=== PATIENT | male | born 1990 | race Caucasian/White ===

== ENCOUNTER 2016-04-28 10:43 | Inpatient (IN) ==
[2016-04-28] MEDS ORDERED: SODIUM CHLORIDE 0.9% 1,000 ML IV STA (13:43)
[2016-04-28] MEDS ORDERED: ONDANSETRON 4 MG/2 ML VIAL IV STA (13:43)
[2016-04-28] MEDS ORDERED: INSULIN REGULAR 100 UNIT/ML IV STA (13:44)
[2016-04-28] MEDS ORDERED: INSULIN REGULAR 100 UNIT/ML ONE (13:49)
[2016-04-28] MEDS ORDERED: ONDANSETRON 4 MG/2 ML VIAL ONE (13:49)
[2016-04-28 14:17] LABS: Basophils # 0.1 10*3/uL (0.0-0.2); Basophils % 0.6 % (0.0-0.8); Eosinophils % 0.1 % (0.00-10.9); Hematocrit 48.8 VOL% (42.0-52.0); Immature Granulocytes % 1.1 %; Immature Granulocytes Absolute 0.21 #; Lymphocytes % 5.3 % (21.2-54.2); Mean Corpuscular HGB Conc 30.7 GM/DL (32-36); Mean Corpuscular Hemoglobin 29 PG (27-34); Mean Corpuscular Volume 95.5 FL (87-102); Mean Platelet Volume 10.8 FL (9.6-12.0); Monocytes # 0.9 10*3/uL (0.11-0.8); Monocytes % 4.9 % (1.7-12.7); Neutrophils # 16.6 10*3/uL (1.4-7.4); Platelet Count 328 10*3/uL (130-400); Red Blood Count 5.11 10*6/uL (3.8-5.5); Red Cell Distribution Width 12.7 % (9.3-17.3); White Blood Count 18.9 10*3/uL (4.5-13.71)
[2016-04-28 14:32] LABS: Calcium 9.1 MG/DL (8.5-10.1); Osmolality,Calculated 311.2 MOS/KG (273-304)
[2016-04-28 14:34] LABS: Apearance,Urine CLEAR (Clear); Bilirubin,Urine Negative (Negative); Blood, Urine Negative (Negative); Glucose,Urine (UA) >=500 mg/dL (Negative); Ketones,Urine 80 mg/dL (Negative); Mucus,Urine Occasional /LPF (Occasional); Nitrite,Urine Negative (Negative); Protein,Urine Negative; Urine Color Colorless (Yellow); Urine Specific Gravity 1.024 (1.001-1.035); Urine Urobilinogen < 2.0 EU/DL (0.2-1.0); WBC,Urine <1 /HPF (0-6)
[2016-04-28 14:43] LABS: Barbiturates Screen,Urine Negative (Negative); Benzodiazepines Screen,Urine Negative (Negative); Cannabinoid Screen,Urine Negative (Negative); Opiate Screen,Urine Negative (Negative); Phencyclidine Screen,Urine Negative (Negative)
--- NOTE | 2016-04-28 15:19 | Emergency Department Note ---
IIsa Gwan, am scribing for, and in the presence of, Anthony Herrera MD 13:54. IJavier Robert M, MD, personally performed the services described in this documentation, ascribed by Ida Moss in my presence, and it is both accurate and complete 518 . Arrival - Arrival Chief Complaint: Nausea/Vomiting/Diarrhea Stated Complaint: DIABETIC SUGAR RUNNING OVER 600 AND HIGHER ED Nursing Triage Note: Pt c/o nausea and vomiting with high blood sugar since this am. States it has been in the 500's this am. Blood sugar greater than 500 in triage. Mode of Arrival: Ambulatory Limitations: No Limitations Source: Patient, Significant other, Old Records Reviewed, RN Notes Reviewed Time Seen by Provider: 04/28/16 13:43 - History of Present Illness HPI Narrative: Pt is a 25 y/o male, with a hx of HTN and NIDDM, who presents to the ED with a c/o N/V and high BS with an onset this morning. His associated sxs have been body aches. Family noted that pt's BS was taken at home and the machine would not given a reading due to it being at least in the 500s. Patient denies fever or having any insurance enabling him to get his insulin pump. Patient stated that he has had DKA before. No other problems/complaints reported in ED. Onset (ago): day(s) Consistency: constant Severity: moderate Allergies/Adverse Reactions: Allergies Allergy/AdvReac Type Severity Reaction Status Date / Time No Known Allergies Allergy Unverified 11/10/15 10:49 Home Medications: Home Medications Medication Instructions Recorded Confirmed Type Insulin Aspart [NovoLOG] 5 unit SUBCUT 1200 11/10/15 04/28/16 History Insulin Aspart [NovoLOG] 5 unit SUBCUT 1900 11/10/15 04/28/16 History Insulin Aspart [NovoLOG] 5 unit SUBCUT QAM 11/10/15 04/28/16 History Insulin Glargine,Hum.rec.anlog 15 unit SUBCUT DAILY 11/10/15 04/28/16 History [Lantus SoloStar] Lisinopril 5 mg PO DAILY 11/10/15 04/28/16 History Insulin Regular, Human [NovoLIN R] 5 - 10 unit SUBCUT TID PRN 04/28/16 04/28/16 History Review of System - Review of System 12 point system: reviewed and no additional remarkable complaints except as stated - Review of System Constitutional: Present: other (high blood sugar) Gastrointestinal: Present: as per HPI, nausea, vomiting Medical,Surgical,& Family Hx - Medical History Cardio: History of: Hypertension Endocrine: History of: Diabetes Mellitus (IDDM) - Social History Smoking Status: Current every day smoker Exam Vital Signs: Vital Signs Temperature 97.9 F 04/28/16 12:04 Pulse Rate 119 H 04/28/16 12:04 Respiratory Rate 20 04/28/16 12:04 Blood Pressure 128/68 04/28/16 12:04 O2 Sat by Pulse Oximetry 97 04/28/16 12:04 - General General appearance: alert, in no apparent distress - Head Head exam: Present: atraumatic, normocephalic - Eye Eye exam: Present: normal appearance, PERRL, EOMI - ENT ENT exam: Present: normal exam, normal oropharynx, mucous membranes moist, TM's normal bilaterally - Neck Neck exam: Present: full ROM, trachea midline. Absent: tenderness, meningismus , lymphadenopathy, thyromegaly - Chest Chest inspection: Present: symmetric chest wall rise. Absent: tenderness - Respiratory Respiratory exam: Present: other (Kussmaul Breathing) - Cardiovascular Cardiovascular exam: Present: regular rate, normal rhythm, normal heart sounds. Absent: murmur, rubs, gallop - Abdominal Exam Abdominal exam: Present: soft, normal bowel sounds. Absent: distention, tenderness, guarding, rebound - Extremities Exam Extremities exam: Present: full ROM. Absent: tenderness, pedal edema, calf tenderness - Back Exam Back exam: Present: full ROM. Absent: tenderness - Neurological Exam Neurological exam: Present: alert, oriented X3, CN II-XII intact. Absent: motor sensory deficit - Psychiatric Psychiatric exam: Present: anxious - Skin Skin exam: Present: warm, dry, intact, normal color Course - Consultations Consultation #1: The hospitalist service will admit the patient. Time: 15:18 Results - Labs CBC & BMP: 04/28/16 13:52 04/28/16 13:52 Lab Results: I have reviewed the patients labs Labs: Lab Results WBC 18.9 10*3/uL (4.5-13.71) H 04/28/16 13:52 RBC 5.11 10*6/uL (3.8-5.5) 04/28/16 13:52 Hgb 15.0 GM/DL (14.0-18.0) 04/28/16 13:52 Hct 48.8 VOL% (42.0-52.0) 04/28/16 13:52 MCV 95.5 FL (87-102) 04/28/16 13:52 MCH 29 PG (27-34) 04/28/16 13:52 MCHC 30.7 GM/DL (32-36) L 04/28/16 13:52 RDW 12.7 % (9.3-17.3) 04/28/16 13:52 Plt Count 328 10*3/uL (130-400) 04/28/16 13:52 MPV 10.8 FL (9.6-12.0) 04/28/16 13:52 Neut % (Auto) 88.0 % (38.7-73.9) H 04/28/16 13:52 Lymph % (Auto) 5.3 % (21.2-54.2) L 04/28/16 13:52 [place] % (Auto) 4.9 % (1.7-12.7) 04/28/16 13:52 Eos % (Auto) 0.1 % (0.00-10.9) 04/28/16 13:52 Baso % (Auto) 0.6 % (0.0-0.8) 04/28/16 13:52 Neut # (Auto) 16.6 10*3/uL (1.4-7.4) H 04/28/16 13:52 Lymph # (Auto) 1.0 10*3/uL (1.4-4.0) L 04/28/16 13:52 [place] # (Auto) 0.9 10*3/uL (0.11-0.8) H 04/28/16 13:52 Eos # (Auto) 0.0 10*3/uL (0.0-0.87) 04/28/16 13:52 Baso # (Auto) 0.1 10*3/uL (0.0-0.2) 04/28/16 13:52 Immature Gran % 1.1 % 04/28/16 13:52 Nucleated RBC % 0.0 /100WBC 04/28/16 13:52 Immature Gran # 0.21 # 04/28/16 13:52 Nucleated RBCs # 0.00 10*3/uL 04/28/16 13:52 Sodium 134 MMOL/L (136-145) L 04/28/16 13:52 Potassium 6.0 MMOL/L (3.5-5.1) H* 04/28/16 13:52 Chloride 94 MMOL/L (98-107) L 04/28/16 13:52 Carbon Dioxide 7 MMOL/L (21-32) L 04/28/16 13:52 Anion Gap 39.0 MMOL/L (5.0-15.0) H 04/28/16 13:52 BUN 22 MG/DL (7-18) H 04/28/16 13:52 Creatinine 1.60 MG/DL (0.70-1.30) H 04/28/16 13:52 GFR Calculation 70 ML/MIN 04/28/16 13:52 BUN/Creatinine Ratio 13.00 RATIO (6.00-20.00) 04/28/16 13:52 Glucose 837 MG/DL (74-106) H* 04/28/16 13:52 POC Glucose > 500 MG/DL (74-106) H* 04/28/16 14:05 Calculated Osmolality 311.2 MOS/KG (273-304) H 04/28/16 13:52 Calcium 9.1 MG/DL (8.5-10.1) 04/28/16 13:52 Amylase 18 U/L (25-115) L 04/28/16 13:52 Lipase 95.0 U/L (73-393) 04/28/16 13:52 Urine Color Colorless (Yellow) 04/28/16 13:52 Urine Appearance Clear (Clear) 04/28/16 13:52 Urine pH 5.0 (4.5-8.0) 04/28/16 13:52 Ur Specific [place] 1.024 (1.001-1.035) 04/28/16 13:52 Urine Protein Negative MG/DL 04/28/16 13:52 Urine Glucose (UA) >=500 mg/dL (Negative) 04/28/16 13:52 Urine Ketones 80 mg/dL (Negative) 04/28/16 13:52 Urine Blood Negative mg/dL (Negative) 04/28/16 13:52 Urine Nitrate Negative (Negative) 04/28/16 13:52 Urine Bilirubin Negative mg/dL (Negative) 04/28/16 13:52 Urine Urobilinogen < 2.0 EU/DL (0.2-1.0) H 04/28/16 13:52 Urine Leukocytes Negative Queenie/ul (Negative) 04/28/16 13:52 Urine WBC <1 /HPF (0-6) 04/28/16 13:52 Urine Mucus Occasional /LPF (Occasional) 04/28/16 13:52 Ur Culture Indicated? Not indicated 04/28/16 13:52 Urine Opiates Screen Negative (Negative) 04/28/16 13:52 Ur Barbiturates Screen Negative (Negative) 04/28/16 13:52 Ur Phencyclidine Scrn Negative (Negative) 04/28/16 13:52 U Amphetamine/Methamph Negative (Negative) 04/28/16 13:52 U Benzodiazepines Scrn Negative (Negative) 04/28/16 13:52 U Cocaine Metab Screen Negative (Negative) 04/28/16 13:52 U Cannabinoids Screen Negative (Negative) 04/28/16 13:52 Disposition Clinical Impression: DKA (diabetic ketoacidoses), Noncompliance, IDDM (insulin dependent diabetes mellitus) Case discussed with: patient, patient's family Disposition: Still a Patient Condition: Stable Time of Disposition: 15:18
[2016-04-28] MEDS ORDERED: DEXTROSE 50% 25 GM/50 ML VIAL IV PRN ×2 (15:26)
[2016-04-28] MEDS ORDERED: POTASSIUM CHLORIDE RIDER 10 MEQ in PREMIX 1 EACH IV PRN (15:26)
[2016-04-28] MEDS ORDERED: SODIUM CHLORIDE 0.9% 1,000 ML IV ONE (15:26)
[2016-04-28] MEDS ORDERED: MAGNESIUM SULF RIDER 4 GM in PREMIX 1 EACH IV PRN (15:26)
[2016-04-28] MEDS ORDERED: SODIUM BICARB INJ 100 MEQ in STERILE WATER INJ 400 ML IV PRN (15:26)
[2016-04-28] MEDS ORDERED: MAGNESIUM SULF RIDER 2 GM in PREMIX 1 EACH IV PRN (15:26)
[2016-04-28] MEDS ORDERED: SODIUM PHOSPHATE INJ 22.5 MMOL in SODIUM CHLORIDE 0.9% 250 ML IV PRN (15:26)
[2016-04-28] MEDS ORDERED: INSULIN REGULAR 100 UNIT/ML IV ONE (15:26)
[2016-04-28] MEDS ORDERED: INSULIN REGULAR DRIP 100 ML IV SCH ×2 (15:30)
--- NOTE | 2016-04-28 15:48 | XRay Report ---
Portable chest. Indication: Shortness of breath. No previous study. There is a mild increase in the interstitial markings in the right infrahilar region. No dense consolidation, pneumothorax, or pleural effusion. The heart is normal in size. The mediastinal contours are unremarkable. No bony abnormality. Impression: Suspected interstitial infiltrate in the right lung base. Short-term followup recommended. PROCEDURE INTERPRETED AT [facility] DEPARTMENT OF RADIOLOGY Final Report Signed by: Dr. Sheron Lundy
[2016-04-28] MEDS ORDERED: INSULIN REGULAR DRIP 100 ML IV ONE (16:02)
[2016-04-28 16:09] LABS: ABG Base Excess -16.1 MMOL/L (-2.5-2.5); ABG HCO3 8.4 MMOL/L (20-26); ABG Oxygen Saturation 98.1 % (95-100); ABG PH 7.261 (7.35-7.45); ABG PO2 120.2 MM HG (80-95); Allen Test Positive; Pt O2 Delivery Device Room Air
[2016-04-28 16:15] LABS: ABG PCO2 19.2 MM HG (35-48)
[2016-04-28 16:27] LABS: Magnesium 2.5 MG/DL (1.8-2.4); Phosphorous 6.4 MG/DL (2.5-4.9)
--- NOTE | 2016-04-28 16:34 | Hospitalist History & Physical ---
<Geraldine Sanchez N - Last Filed: 04/28/16 16:25> Assessment and Plan - Time spent with patient Time spent with patient: Greater than 30 minutes (due to assessment, plan and documentation) (1) DKA (diabetic ketoacidoses) Status: Acute Assessment and plan: admit to ICU DKA order set Consult to case management to try to help get his supplies MG and K replacement PRN meds further plan and addendum to follow per Dr. Clifton Current Visit: Yes (2) IDDM (insulin dependent diabetes mellitus) Status: Acute Current Visit: Yes (3) Noncompliance Status: Acute Current Visit: Yes History of Present Illness Chief complaint: DKA History of present illness: Mr. Díaz is a 25 year old male who presents to the Er today with vomiting and elevated glucose. Mr. Díaz has a known history of medical non- compliance. He states he is supposed to be on Lantus at night but has not been taking it for several weeks. He also has an insulin pump but has not had the supplies for it in a while. He has been using sliding scale Novolog at home, ran out last night after eating a double cheeseburger. He started vomiting this morning at work. He is awake and alert at present, breathing easy. He has been told not to eat or drink, but is asking for a coke and a meal. He has a PMH of DM and HTN. Denies PSH. Smokes a pack of cigarettes a day, drinks 2-3 times a week. Denies drug use. Pt denies chest pain, shortness of breath, abdominal pain , diarrhea, fever, chills, dysuria, edema. Home Medications Medication Instructions Recorded Confirmed Type Insulin Aspart [NovoLOG] 5 unit SUBCUT 1200 11/10/15 04/28/16 History Insulin Aspart [NovoLOG] 5 unit SUBCUT 1900 11/10/15 04/28/16 History Insulin Aspart [NovoLOG] 5 unit SUBCUT QAM 11/10/15 04/28/16 History Insulin Glargine,Hum.rec.anlog 15 unit SUBCUT DAILY 11/10/15 04/28/16 History [Lantus SoloStar] Lisinopril 5 mg PO DAILY 11/10/15 04/28/16 History Insulin Regular, Human [NovoLIN R] 5 - 10 unit SUBCUT TID PRN 04/28/16 04/28/16 History Allergies Allergy/AdvReac Type Severity Reaction Status Date / Time No Known Allergies Allergy Unverified 11/10/15 10:49 Medical,Surgical,& Family Hx - Medical History Cardio: History of: Hypertension Endocrine: History of: Diabetes Mellitus (IDDM) - Social History Smoking Status: Current every day smoker 12 point system: reviewed and no additional remarkable complaints except as stated Exam - Constitutional Vitals: Period Temp Pulse Resp BP Sys/Salgado Pulse Ox Last 24 Hr 97.9 F-98.0 F 114-119 20-22 128-128/68-77 97-97 General appearance: no acute distress - Head Head exam: Present: normal inspection, normocephalic - Eye Eye exam: Present: EOMI. Absent: scleral icterus Pupils: Present: HITESH, normal accommodation - ENT ENT exam: Present: normal exam, normal oropharynx - Neck Neck exam: Present: normal inspection. Absent: lymphadenopathy - Respiratory Respiratory exam: Present: clear to auscultation bilaterally. Absent: wheezes - Cardiovascular Cardiovascular exam: Present: regular rate and rhythm. Absent: tachycardia - GI/Abdominal GI/Abdominal exam: Present: normal bowel sounds, soft. Absent: tenderness - Extremities Exam Extremities exam: Present: normal inspection, full ROM. Absent: edema - Back Exam Back exam: Present: normal inspection. Absent: muscle spasm - Neurological Exam Neurological exam: Present: alert, oriented X3 - Psychiatric Psychiatric exam: Present: normal affect, normal mood - Skin Skin exam: Present: normal color, warm, dry Results - Labs CBC & BMP: 04/28/16 13:52 04/28/16 13:52 Lab Results: I have reviewed the past 24 hour labs <Anette Clifton - Last Filed: 04/28/16 18:01> History of Present Illness History of present illness: This sis an addendum to HPI: agree with A/P 25 yo WM with DMI presents to ER today after 1 episode of vomiting at work this am. Pt has DM I since young age. He is on insulin pump for 2 years. Apparently he run out of insulin supplies for pump for past month and was taking novolin SQ per [place]. He has a h/o medical noncompliance. Pt was admitted to [facility] 4 months ago with DKA. This morning he felt weak and suddenly vomited at work. He denies CP, SOB, fever, but admits having chills. He was around sick daughter. His BS this am was 250. Pt presented to ER and his BS was in 600s. Chest x ray - with right mid lobe opacity. His GAP around 39. pt was admitted to ICU on DKA protocol. will start on ceftriaxone 1 g IV q 24 to cover for gram neg. Exam - Constitutional Vitals: Period Temp Pulse Resp BP Sys/Salgado Pulse Ox Last 24 Hr 96-104 19-19 128-152/58-70 100-100 Results - Labs CBC & BMP: 04/28/16 13:52 04/28/16 13:52
[2016-04-28] MEDS: SODIUM CHLORIDE 0.9% 1,000 ML IV SCH ×2 (17:37→20:20)
[2016-04-28] MEDS: cefTRIAXone 1,000 MG in SODIUM CHLORIDE 0.9% 100 ML IV SCH (18:33)
[2016-04-28] MEDS: DEXTROSE 5% NACL 0.9% 1,000 ML IV SCH (19:15)
[2016-04-28] MEDS ORDERED: DEXTROSE 5% 1,000 ML IV SCH (19:30)
[2016-04-28 19:54] LABS: Calcium 8.2 MG/DL (8.5-10.1); Osmolality,Calculated 299.3 MOS/KG (273-304); Potassium 4.8 MMOL/L (3.5-5.1)
[2016-04-28] MEDS ORDERED: SODIUM CHLORIDE 0.9% 1,000 ML IV SCH (20:26)
[2016-04-28] MEDS: DEXTROSE 5% NACL 0.45% 1,000 ML IV SCH (21:30)
[2016-04-29 00:01] LABS: Calcium 7.7 MG/DL (8.5-10.1); Osmolality,Calculated 287.8 MOS/KG (273-304); Potassium 4.3 MMOL/L (3.5-5.1)
[2016-04-29] MEDS: DEXTROSE 5% NACL 0.9% 1,000 ML IV SCH (00:16)
[2016-04-29] MEDS: DEXTROSE 5% NACL 0.45% 1,000 ML IV SCH (04:55)
[2016-04-29 05:22] LABS: Basophils # 0.1 10*3/uL (0.0-0.2); Basophils % 0.5 % (0.0-0.8); Eosinophils # 0.1 10*3/uL (0.0-0.87); Hematocrit 40.1 VOL% (42.0-52.0); Immature Granulocytes % 0.4 %; Immature Granulocytes Absolute 0.04 #; Lymphocytes # 2.7 10*3/uL (1.4-4.0); Lymphocytes % 27.6 % (21.2-54.2); Mean Corpuscular HGB Conc 32.4 GM/DL (32-36); Mean Corpuscular Hemoglobin 29 PG (27-34); Mean Corpuscular Volume 88.1 FL (87-102); Mean Platelet Volume 10.3 FL (9.6-12.0); Monocytes # 0.9 10*3/uL (0.11-0.8); Monocytes % 9.3 % (1.7-12.7); Neutrophils % 61.2 % (38.7-73.9); Platelet Count 264 10*3/uL (130-400); Red Blood Count 4.55 10*6/uL (3.8-5.5); Red Cell Distribution Width 12.8 % (9.3-17.3); White Blood Count 9.8 10*3/uL (4.5-13.71)
[2016-04-29 05:50] LABS: Magnesium 2.2 MG/DL (1.8-2.4); Phosphorous 3.6 MG/DL (2.5-4.9)
[2016-04-29 05:51] LABS: Calcium 7.8 MG/DL (8.5-10.1); Osmolality,Calculated 289.8 MOS/KG (273-304); Potassium 4.1 MMOL/L (3.5-5.1)
[2016-04-29 07:47] LABS: Calcium 7.9 MG/DL (8.5-10.1); Osmolality,Calculated 288.6 MOS/KG (273-304); Potassium 4.1 MMOL/L (3.5-5.1)
[2016-04-29] MEDS ORDERED: SODIUM CHLORIDE 0.45% 1,000 ML IV SCH (08:26)
[2016-04-29] MEDS ORDERED: GLUCAGON 1 MG VIAL IM PRN (08:41)
[2016-04-29] MEDS ORDERED: DEXTROSE 50% 25 GM/50 ML VIAL IV PRN (08:41)
[2016-04-29] MEDS: NICOTINE 14 MG/24 HR PATCH TRANSDERM SCH (09:00)
[2016-04-29] MEDS ORDERED: INSULIN GLARGINE 100 UNIT/ML SUBCUT SCH (09:00)
--- NOTE | 2016-04-29 10:18 | Hospitalist Progress Note ---
Assessment and Plan (1) DKA (diabetic ketoacidoses) Status: Suspected Assessment and plan: advance his diet and give Lantus 20 units now and resume sliding scale insulin until seen by visual educator Current Visit: Yes (2) Noncompliance Status: Chronic Current Visit: Yes (3) IDDM (insulin dependent diabetes mellitus) Status: Chronic Current Visit: Yes Hospitalist: Subjective Interval history: Patient is a 25-year-old male with history of insulin-dependent diabetes mellitus as he does have an insulin pump. He presented with nausea vomiting abdominal pain was found to be in DKA. This was treated with IV fluids and insulin infusion. Patient states that he does not have the financial resources to resume his insulin medications and supplies. Exam - Constitutional Vitals: Period Temp Pulse Resp BP Sys/[place]algado Pulse Ox Last 24 Hr 97.5 F-98.9 F 82-111 10-24 99-154/29-86 94-100 General appearance: no acute distress - Head Head exam: Present: normocephalic, atraumatic - Eye Eye exam: Present: EOMI Pupils: Present: HITESH - ENT ENT exam: Present: normal exam - Neck Neck exam: Present: normal inspection - Respiratory Respiratory exam: Present: clear to auscultation bilaterally - Cardiovascular Cardiovascular exam: Present: regular rate and rhythm - GI/Abdominal GI/Abdominal exam: Present: normal bowel sounds, soft - Extremities Exam Extremities exam: Present: full ROM - Neurological Exam Neurological exam: Present: alert, oriented X3, CN II-XII intact - Psychiatric Psychiatric exam: Present: normal affect, normal mood - Skin Skin exam: Present: warm, intact Results - Labs CBC & BMP: 04/29/16 04:38 04/29/16 07:04
[2016-04-29] MEDS: INSULIN REGULAR 100 UNIT/ML SUBCUT SCH ×3 (11:39→20:43)
[2016-04-29 12:16] LABS: Calcium 7.9 MG/DL (8.5-10.1); Osmolality,Calculated 287.1 MOS/KG (273-304)
[2016-04-29] MEDS: cefTRIAXone 1,000 MG in SODIUM CHLORIDE 0.9% 100 ML IV SCH (17:49)
[2016-04-30 07:18] VITALS: BP 145/90
[2016-04-30] MEDS ORDERED: INSULIN NPH/REGULAR 70/30 100 UNIT/ML SUBCUT SCH ×2 (07:30→16:30)
[2016-04-30] MEDS: INSULIN REGULAR 100 UNIT/ML SUBCUT SCH (08:27)
[2016-04-30] MEDS: NICOTINE 14 MG/24 HR PATCH TRANSDERM SCH (08:30)
--- NOTE | 2016-04-30 10:34 | Discharge Summary ---
Hospital Course - Hospital Course Hospital Course: Patient is a 25-year-old male with a history of insulin dependent diabetes does have a insulin pump but is unable to purchase his supplies. He presented complaining of abdominal pain associated with nausea and vomiting and was found to be hyperglycemic with an acidosis was admitted to the intensive care unit for diabetic ketoacidosis. He was started on insulin views along with IV fluids. His anion gap is resolved and his insulin infusion was stopped. His diet was advanced. We did do a certified lactation educator consultation who recommended 70/30 20 units in the a.m. and 10 units at night. Overnight it appears that he became hypoglycemic but did respond with crackers and juice. Patient is not ready to be discharged home. We'll continue the 70/30 20 units in the a.m. but will decrease his evening dose to to 5 units. - Time spent with patient Time with patient DS: Greater than 30 minutes Diagnosis - Discharge Diagnosis (1) DKA (diabetic ketoacidoses) Status: Suspected (2) Noncompliance Status: Chronic (3) IDDM (insulin dependent diabetes mellitus) Status: Chronic Discharge Plan - Discharge Data Disposition: Disch To Home/Self Care Discharge Diet: diabetic diet Activity: resume usual activities as tolerated Hygiene: no restrictions Contact your physician if you experience:: Nausea/Vomiting - Discharge Medications New Hum Insulin NPH/Reg Insulin Hm [NovoLIN 70/30] 20 unit SUBCUT AC BREAKFAST # 10 ml Hum Insulin NPH/Reg Insulin Hm [NovoLIN 70/30] 5 unit SUBCUT AC SUPPER #10 ml Continue Lisinopril 5 mg PO DAILY Discontinued Insulin Aspart [NovoLOG] 5 unit SUBCUT 1900 Insulin Aspart [NovoLOG] 5 unit SUBCUT 1200 Insulin Aspart [NovoLOG] 5 unit SUBCUT QAM Insulin Glargine,Hum.rec.anlog [Lantus SoloStar] 15 unit SUBCUT DAILY Insulin Regular, Human [NovoLIN R] 5 - 10 unit SUBCUT TID PRN PRN Reason: SLIDING SCALE - Follow Up or Referral - Forms/Instructions Exam - Constitutional Vitals: Period Temp Pulse Resp BP Sys/[place] Pulse Ox Last 24 Hr 97.2 F-99.0 F 79-105 15-20 113-150/67-90 97-98 General appearance: no acute distress - Head Head exam: Present: normocephalic, atraumatic - Eye Eye exam: Present: EOMI Pupils: Present: HITESH - ENT ENT exam: Present: normal exam - Respiratory Respiratory exam: Present: clear to auscultation bilaterally - Cardiovascular Cardiovascular exam: Present: regular rate and rhythm - GI/Abdominal GI/Abdominal exam: Present: normal bowel sounds, soft - Extremities Exam Extremities exam: Present: full ROM - Neurological Exam Neurological exam: Present: alert, oriented X3, CN II-XII intact - Skin Skin exam: Present: warm, dry, intact Discharge Results Labs on day of discharge: Labs from last 24 hours 04/30/16 04/29/16 04/29/16 07:08 20:53 19:52 Sodium Potassium Chloride Carbon Dioxide Anion Gap BUN Creatinine GFR Calculation BUN/Creatinine Ratio Glucose POC Glucose 292 H 86 33 L* Calculated Osmolality Calcium 04/29/16 04/29/16 04/29/16 16:09 15:44 15:19 Sodium Potassium Chloride Carbon Dioxide Anion Gap BUN Creatinine GFR Calculation BUN/Creatinine Ratio Glucose POC Glucose 92 68 L 39 L* Calculated Osmolality Calcium 04/29/16 04/29/16 04/29/16 14:57 11:44 10:33 Sodium 142 Potassium 4.0 Chloride 107 Carbon Dioxide 21 Anion Gap 18.0 H BUN 10 Creatinine 1.10 GFR Calculation 109 BUN/Creatinine Ratio 9.00 Glucose 200 H POC Glucose 36 L* 235 H Calculated Osmolality 287.1 Calcium 7.9 L 04/29/16 04/29/16 09:35 08:35 Sodium Potassium Chloride Carbon Dioxide Anion Gap BUN Creatinine GFR Calculation BUN/Creatinine Ratio Glucose POC Glucose 160 H 138 H Calculated Osmolality Calcium Preliminary micro results at discharge 04/28/16 16:54 Blood Culture - Preliminary Blood No growth at 1 day 04/28/16 16:22 Blood Culture - Preliminary Blood No growth at 1 day DS: Provider Date of admission: 04/28/16 15:26 Primary care physician: . No PCP Attending physician on admission: Anette Clifton MD Consults: 04/28/16 17:21 Consult to Pharmacy [CONS] Routine Reason for Pharmacy Consult: Adjust Meds Renal Funct 04/28/16 18:08 Consult to [facility], Educator [CONS] Routine Reason for Welder Fitter Arc: Diabetes Education 04/29/16 10:19 Consult to Case Mgmt/Social Srvs [CONS] Routine Reason for Case Mgmt/Social Srvs: Discharge Planning Other Consult Comment: will need assistance to purchase insulin supplies Consult to [facility], Educator [CONS] Routine Reason for Welder Fitter Arc: Restart Insulin Pump Discharging clinician: Sravani Solano MD Expected date of discharge: 04/30/16
== END 2016-04-30 11:16 | disposition home or self-care (01) | DRG 639 ==
LOC: N.ED 10:43 → N.EDINP 15:26 → N.CC 17:06 → N.2E 04-29 15:04
PROVIDERS: ADMIT Internal Medicine; ATTEND Internal Medicine

== ENCOUNTER 2016-08-29 13:58 | Inpatient (IN) ==
[2016-08-29] MEDS ORDERED: SODIUM CHLORIDE 0.9% 1,000 ML IV STA (14:47)
[2016-08-29] MEDS ORDERED: ONDANSETRON 4 MG/2 ML VIAL IV STA (14:47)
[2016-08-29] MEDS ORDERED: ONDANSETRON 4 MG/2 ML VIAL ONE (15:05)
[2016-08-29 15:15] LABS: Basophils # 0.1 10*3/uL (0.0-0.2); Basophils % 0.7 % (0.0-0.8); Eosinophils # 0.1 10*3/uL (0.0-0.87); Eosinophils % 0.5 % (0.00-10.9); Hematocrit 47.1 VOL% (42.0-52.0); Hemoglobin 15.8 GM/DL (14.0-18.0); Immature Granulocytes % 0.4 %; Immature Granulocytes Absolute 0.04 #; Lymphocytes # 1.9 10*3/uL (1.4-4.0); Lymphocytes % 19.7 % (21.2-54.2); Mean Corpuscular HGB Conc 33.5 GM/DL (32-36); Mean Corpuscular Hemoglobin 30 PG (27-34); Mean Corpuscular Volume 90.1 FL (87-102); Mean Platelet Volume 9.3 FL (9.6-12.0); Monocytes # 0.5 10*3/uL (0.11-0.8); Monocytes % 5.3 % (1.7-12.7); Neutrophils % 73.4 % (38.7-73.9); Platelet Count 320 T/CUMM (130-400); Red Blood Count 5.23 MC/CUMM (3.8-5.5); Red Cell Distribution Width 13.6 % (9.3-17.3); White Blood Count 9.5 T/CUMM (4-12)
[2016-08-29 15:23] LABS: Apearance,Urine CLEAR (Clear); Bilirubin,Urine Negative (Negative); Blood, Urine Negative (Negative); Glucose,Urine (UA) >=500 mg/dL (Negative); Ketones,Urine 80 mg/dL (Negative); Nitrite,Urine Negative (Negative); Protein,Urine 30 MG/DL; RBC,Urine 5 /HPF (0-4); Squamous Epithelial Cell,Urine Occasional /HPF (0-10); Urine Color Yellow (Yellow); Urine Specific Gravity 1.031 (1.001-1.035); Urine Urobilinogen < 2.0 EU/DL (0.2-1.0); WBC,Urine 14 /HPF (0-6)
[2016-08-29 15:35] LABS: Calcium 8.9 MG/DL (8.5-10.1); Osmolality,Calculated 278.8 MOS/KG (273-304); Potassium 4.2 MMOL/L (3.5-5.1)
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
[2016-08-29] MEDS ORDERED: SODIUM ACETATE IV PRN (16:48)
[2016-08-29] MEDS ORDERED: MAGNESIUM SULF RIDER 4 GM in PREMIX 1 EACH IV PRN (16:48)
[2016-08-29] MEDS ORDERED: MAGNESIUM SULF RIDER 2 GM in PREMIX 1 EACH IV PRN (16:48)
[2016-08-29] MEDS ORDERED: STERILE WATER IV PRN (16:48)
[2016-08-29] MEDS ORDERED: ALBUTEROL 2.5 MG/3 ML NEB RESP TX PRN (16:48)
[2016-08-29] MEDS ORDERED: ONDANSETRON 4 MG/2 ML VIAL IV PRN (16:48)
[2016-08-29] MEDS ORDERED: LABETALOL 20 MG/4 ML SYRINGE IV PRN (16:48)
[2016-08-29] MEDS ORDERED: INSULIN REGULAR DRIP 100 ML IV SCH (16:48)
[2016-08-29] MEDS ORDERED: SODIUM PHOSPHATE INJ 20.4 MMOL in SODIUM CHLORIDE 0.9% 250 ML IV PRN (16:48)
[2016-08-29] MEDS ORDERED: DEXTROSE 50% 25 GM/50 ML VIAL IV PRN ×2 (16:48)
[2016-08-29] MEDS: DEXTROSE 5% NACL 0.45% 1,000 ML IV SCH (17:02)
[2016-08-29] MEDS: cefTRIAXone 1,000 MG in SODIUM CHLORIDE 0.9% 100 ML IV SCH (17:05)
--- NOTE | 2016-08-29 17:06 | XRay Report ---
XR chest 1V Indication: Shortness of breath Comparison: None. Technique: Portable AP chest was performed. Findings: Heart size, mediastinal contour, and hilar structures demonstrate no significant abnormalities. The lung parenchyma is clear. Bones and soft tissues demonstrate no significant abnormalities. Impression: 1. No evidence of acute pathology. 08/29/2016 5:03 PM PROCEDURE INTERPRETED AT [facility] DEPARTMENT OF RADIOLOGY Final Report Signed by: Dr. Alphonso Herrera
[2016-08-29] MEDS: ENOXAPARIN 40 MG/0.4 ML SYRINGE SUBCUT SCH (17:08)
[2016-08-29] MEDS: PANTOPRAZOLE 40 MG VIAL IV SCH (17:09)
[2016-08-29 17:11] LABS: Magnesium 2.1 MG/DL (1.8-2.4); Phosphorous 2.9 MG/DL (2.5-4.9)
[2016-08-29 23:47] LABS: Calcium 7.7 MG/DL (8.5-10.1); Osmolality,Calculated 279.3 MOS/KG (273-304); Potassium 3.6 MMOL/L (3.5-5.1)
[2016-08-30] MEDS ORDERED: GLUCAGON 1 MG VIAL IM PRN (00:25)
[2016-08-30] MEDS: DEXTROSE 5% NACL 0.45% 1,000 ML IV SCH ×3 (00:41→16:13)
[2016-08-30] MEDS: POTASSIUM CHLORIDE RIDER 10 MEQ in PREMIX 1 EACH IV PRN ×2 (00:42→01:47)
[2016-08-30] MEDS: INSULIN REGULAR 100 UNIT/ML SUBCUT SCH ×6 (05:39→23:14)
[2016-08-30 05:48] LABS: Basophils # 0.1 10*3/uL (0.0-0.2); Basophils % 0.9 % (0.0-0.8); Eosinophils # 0.2 10*3/uL (0.0-0.87); Eosinophils % 2.7 % (0.00-10.9); Hematocrit 39.3 VOL% (42.0-52.0); Hemoglobin 12.9 GM/DL (14.0-18.0); Immature Granulocytes % 0.4 %; Immature Granulocytes Absolute 0.03 #; Lymphocytes # 2.6 10*3/uL (1.4-4.0); Lymphocytes % 34.4 % (21.2-54.2); Mean Corpuscular HGB Conc 32.8 GM/DL (32-36); Mean Corpuscular Hemoglobin 30 PG (27-34); Mean Corpuscular Volume 89.7 FL (87-102); Mean Platelet Volume 9.4 FL (9.6-12.0); Monocytes # 0.6 10*3/uL (0.11-0.8); Monocytes % 7.4 % (1.7-12.7); Neutrophils % 54.2 % (38.7-73.9); Platelet Count 250 T/CUMM (130-400); Red Blood Count 4.38 MC/CUMM (3.8-5.5); Red Cell Distribution Width 13.6 % (9.3-17.3); White Blood Count 7.4 T/CUMM (4-12)
[2016-08-30 06:25] LABS: Calcium 8.1 MG/DL (8.5-10.1); Osmolality,Calculated 280.5 MOS/KG (273-304); Potassium 4.1 MMOL/L (3.5-5.1)
[2016-08-30 06:30] LABS: Magnesium 1.9 MG/DL (1.8-2.4)
--- NOTE | 2016-08-30 10:12 | Hospitalist Progress Note ---
Assessment and Plan (1) DKA (diabetic ketoacidoses) Status: Acute Assessment and plan: His gap is closed, tolerating a diet Diabetes educators consulted Current Visit: Yes (2) IDDM (insulin dependent diabetes mellitus) Status: Chronic Current Visit: No (3) Noncompliance Status: Chronic Current Visit: No Hospitalist: Subjective Interval history: No acute events overnight. Off insulin infusion. Tolerating a diet. Will transfer to the floor. Exam - Constitutional Vitals: Period Temp Pulse Resp BP Sys/Salgado Pulse Ox Last 24 Hr 97.6 F-98.6 F 65-103 12-20 109-156/65-92 96-100 General appearance: normal weight - Head Head exam: Present: normocephalic, atraumatic - Eye Eye exam: Present: EOMI Pupils: Present: HITESH - ENT ENT exam: Present: normal exam - Neck Neck exam: Present: normal inspection - Respiratory Respiratory exam: Present: clear to auscultation bilaterally. Absent: wheezes - Cardiovascular Cardiovascular exam: Present: regular rate and rhythm - GI/Abdominal GI/Abdominal exam: Present: normal bowel sounds, soft. Absent: tenderness, rebound - Extremities Exam Extremities exam: Present: normal inspection - Back Exam Back exam: Present: normal inspection - Neurological Exam Neurological exam: Present: alert, oriented X3 - Psychiatric Psychiatric exam: Present: normal affect, normal mood - Skin Skin exam: Present: warm, intact Results - Labs CBC & BMP: 08/30/16 05:20 08/30/16 05:20
[2016-08-30 11:29] LABS: Calcium 7.9 MG/DL (8.5-10.1); Osmolality,Calculated 282.7 MOS/KG (273-304); Potassium 4.4 MMOL/L (3.5-5.1)
[2016-08-30] MEDS: INSULIN NPH 100 UNIT/ML SUBCUT SCH (16:13)
[2016-08-30] MEDS: cefTRIAXone 1,000 MG in SODIUM CHLORIDE 0.9% 100 ML IV SCH (16:48)
[2016-08-30] MEDS: ENOXAPARIN 40 MG/0.4 ML SYRINGE SUBCUT SCH ×2 (16:49→16:50)
[2016-08-30] MEDS: PANTOPRAZOLE 40 MG VIAL IV SCH (16:49)
[2016-08-31] MEDS: INSULIN REGULAR 100 UNIT/ML SUBCUT SCH ×3 (01:56→08:58)
[2016-08-31] MEDS: DEXTROSE 5% NACL 0.45% 1,000 ML IV SCH (01:56)
[2016-08-31 08:26] VITALS: BP 141/74
[2016-08-31] MEDS: INSULIN NPH 100 UNIT/ML SUBCUT SCH (08:56)
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
== END 2016-08-31 11:20 | disposition home or self-care (01) | DRG 639 ==
LOC: N.ED 13:58 → N.EDINP 15:42 → SUATTDRO 15:42 → N.ICU 16:06 → N.5E 08-30 10:33
PROVIDERS: ADMIT Internal Medicine; ATTEND Internal Medicine Infectious Disease

== ENCOUNTER 2017-04-12 08:39 | Inpatient (IN) ==
[2017-04-12 10:42] LABS: Basophils # 0.1 10*3/uL (0.0-0.2); Basophils % 0.7 % (0.0-0.8); Eosinophils # 0.1 10*3/uL (0.0-0.87); Eosinophils % 0.4 % (0.00-10.9); Hematocrit 51.9 VOL% (42.0-52.0); Hemoglobin 16.1 GM/DL (14.0-18.0); Immature Granulocytes % 1.1 %; Immature Granulocytes Absolute 0.18 #; Lymphocytes # 3.2 10*3/uL (1.4-4.0); Lymphocytes % 18.9 % (21.2-54.2); Mean Corpuscular Hemoglobin 30 PG (27-34); Mean Corpuscular Volume 95.4 FL (87-102); Mean Platelet Volume 10.8 FL (9.6-12.0); Monocytes # 0.8 10*3/uL (0.11-0.8); Monocytes % 4.4 % (1.7-12.7); Neutrophils # 12.6 10*3/uL (1.4-7.4); Neutrophils % 74.5 % (38.7-73.9); Platelet Count 345 T/CUMM (130-400); Red Blood Count 5.44 MC/CUMM (3.8-5.5); Red Cell Distribution Width 13.2 % (9.3-17.3)
[2017-04-12] MEDS ORDERED: ONDANSETRON 4 MG/2 ML VIAL ONE (10:47)
[2017-04-12] MEDS ORDERED: ONDANSETRON 4 MG/2 ML VIAL IV STA (10:59)
[2017-04-12] MEDS ORDERED: SODIUM CHLORIDE 0.9% 1,000 ML IV STA ×2 (10:59→12:02)
[2017-04-12 11:16] LABS: Alanine Aminotransferase 40 U/L (16-61); Albumin 4.1 G/DL (3.4-5.0); Alkaline Phosphatase 170 U/L (45-117); Aspartate Amino Transferase 45 U/L (0-37); Blood Urea Nitrogen 23 MG/DL (7-18); Calcium 9.4 MG/DL (8.5-10.1); Magnesium 2.3 MG/DL (1.8-2.4); Osmolality,Calculated 312.5 MOS/KG (273-304); Potassium 5.2 MMOL/L (3.5-5.1); Sodium 132 MMOL/L (136-145)
[2017-04-12 11:18] LABS: Glucose 915 MG/DL (74-106)
[2017-04-12 11:20] LABS: Lactic Acid 7.8 MMOL/L (0.4-2.0)
[2017-04-12] MEDS ORDERED: SODIUM BICARBONATE 50 MEQ/50 ML VIAL IV STA ×3 (11:23→13:50)
[2017-04-12 11:29] LABS: ABG Base Excess -25.9 MMOL/L (-2.5-2.5); ABG HCO3 2.4 MMOL/L (20-26); ABG Oxygen Saturation 97.6 % (95-100); ABG PO2 131.7 MM HG (80-95); ABG TCO2 2.6 MMOL/L (23-27)
[2017-04-12] MEDS ORDERED: INSULIN REGULAR DRIP 100 ML IV SCH (11:30)
[2017-04-12 11:31] LABS: ABG PCO2 8.9 MM HG (35-48)
[2017-04-12] MEDS ORDERED: SODIUM BICARBONATE 50 MEQ/50 ML SYRINGE IV ONE ×3 (11:45→13:51)
[2017-04-12 12:06] LABS: Apearance,Urine CLEAR (Clear); Bilirubin,Urine Negative (Negative); Blood, Urine Small mg/dL (Negative); Glucose,Urine (UA) >=500 mg/dL (Negative); Ketones,Urine 80 mg/dL (Negative); Mucus,Urine Occasional /LPF (Occasional); Nitrite,Urine Negative (Negative); Protein,Urine Negative; RBC,Urine <1 /HPF (0-4); Urine Color Straw (Yellow); Urine Specific Gravity 1.026 (1.001-1.035); Urine Urobilinogen < 2.0 EU/DL (0.2-1.0); WBC,Urine 1 /HPF (0-6)
[2017-04-12] MEDS ORDERED: SODIUM CHLORIDE 0.9% 1,000 ML IV ONE (12:12)
[2017-04-12] MEDS ORDERED: ALBUTEROL 2.5 MG/3 ML NEB RESP TX PRN (12:12)
[2017-04-12] MEDS ORDERED: ACETAMINOPHEN 325 MG TABLET PO PRN (12:12)
[2017-04-12] MEDS ORDERED: SODIUM PHOSPHATE INJ 21.5 MMOL in SODIUM CHLORIDE 0.9% 250 ML IV PRN (12:12)
[2017-04-12] MEDS ORDERED: MAGNESIUM SULF RIDER 4 GM in PREMIX 1 EACH IV PRN (12:12)
[2017-04-12] MEDS ORDERED: DEXTROSE 50% 25 GM/50 ML VIAL IV PRN ×2 (12:12)
[2017-04-12] MEDS ORDERED: SODIUM CHLORIDE 0.9% 2,600 ML IV ONE (12:12)
[2017-04-12] MEDS ORDERED: SODIUM BICARB INJ 100 MEQ in STERILE WATER INJ 400 ML IV PRN (12:12)
[2017-04-12] MEDS ORDERED: MAGNESIUM SULF RIDER 2 GM in PREMIX 1 EACH IV PRN (12:12)
[2017-04-12] MEDS ORDERED: POTASSIUM CHLORIDE RIDER 10 MEQ in PREMIX 1 EACH IV PRN (12:12)
[2017-04-12 12:16] LABS: Barbiturates Screen,Urine Negative (Negative); Benzodiazepines Screen,Urine Negative (Negative); Cannabinoid Screen,Urine Negative (Negative); Opiate Screen,Urine Negative (Negative); Phencyclidine Screen,Urine Negative (Negative)
[2017-04-12 12:25] LABS: INR 0.9; PT Patient Result 9.5 SECS; Partial Thromboplastin Time 23.7 SECS (0-40)
[2017-04-12] MEDS ORDERED: SODIUM CHLORIDE 0.9% 1,000 ML IV SCH ×3 (12:30→17:13)
[2017-04-12 13:11] LABS: Allen Test Positive
[2017-04-12 13:13] LABS: ABG Base Excess -29.8 MMOL/L (-2.5-2.5); ABG HCO3 6.1 MMOL/L (20-26); ABG Oxygen Saturation 97.9 % (95-100)
[2017-04-12 13:22] LABS: ABG PH 6.988 (7.35-7.45)
[2017-04-12] MEDS: INSULIN REGULAR DRIP 100 ML IV SCH (14:03)
[2017-04-12 14:32] LABS: Calcium 8.4 MG/DL (8.5-10.1); Osmolality,Calculated 316.3 MOS/KG (273-304)
[2017-04-12 15:17] LABS: ABG Base Excess -19.7 MMOL/L (-2.5-2.5); ABG HCO3 5.3 MMOL/L (20-26); ABG Oxygen Saturation 98.6 % (95-100); ABG PO2 150.3 MM HG (80-95); ABG TCO2 5.7 MMOL/L (23-27)
[2017-04-12 15:18] LABS: ABG PH 7.208 (7.35-7.45)
[2017-04-12 15:19] LABS: ABG PCO2 13.6 MM HG (35-48)
[2017-04-12] MEDS ORDERED: ALPRAZolam 0.25 MG TABLET PO PRN (15:39)
[2017-04-12] MEDS: SODIUM BICARB INJ 100 MEQ in DEXTROSE 5% NACL 0.22% 1,000 ML IV SCH ×2 (16:00→21:32)
[2017-04-12] MEDS: SODIUM CHLORIDE 0.9% 1,000 ML IV SCH (16:38)
[2017-04-12 17:11] LABS: ABG Base Excess -12.5 MMOL/L (-2.5-2.5); ABG HCO3 11.1 MMOL/L (20-26); ABG Oxygen Saturation 98.1 % (95-100); ABG PCO2 21.8 MM HG (35-48); ABG PH 7.325 (7.35-7.45); ABG PO2 107.7 MM HG (80-95); ABG TCO2 11.8 MMOL/L (23-27)
[2017-04-12] MEDS: PIPERACILLIN/TAZOBACTAM 3,375 MG in SODIUM CHLORIDE 0.9% 100 ML IV SCH (17:38)
[2017-04-12 20:44] LABS: Calcium 7.8 MG/DL (8.5-10.1); Potassium 3.6 MMOL/L (3.5-5.1)
[2017-04-13 01:26] LABS: Calcium 7.3 MG/DL (8.5-10.1); Osmolality,Calculated 297.8 MOS/KG (273-304); Potassium 3.9 MMOL/L (3.5-5.1)
[2017-04-13] MEDS: PIPERACILLIN/TAZOBACTAM 3,375 MG in SODIUM CHLORIDE 0.9% 100 ML IV SCH ×3 (01:45→16:23)
[2017-04-13] MEDS: SODIUM BICARB INJ 100 MEQ in DEXTROSE 5% NACL 0.22% 1,000 ML IV SCH ×3 (02:26→08:39)
[2017-04-13] MEDS ORDERED: SODIUM CHLORIDE 0.45% 1,000 ML IV SCH (05:13)
[2017-04-13 05:18] LABS: Basophils % 0.3 % (0.0-0.8); Eosinophils % 0.1 % (0.00-10.9); Hematocrit 40.8 VOL% (42.0-52.0); Hemoglobin 13.9 GM/DL (14.0-18.0); Immature Granulocytes % 0.5 %; Immature Granulocytes Absolute 0.05 #; Lymphocytes # 1.5 10*3/uL (1.4-4.0); Lymphocytes % 14.6 % (21.2-54.2); Mean Corpuscular HGB Conc 34.1 GM/DL (32-36); Mean Corpuscular Hemoglobin 30 PG (27-34); Mean Corpuscular Volume 87.4 FL (87-102); Mean Platelet Volume 10.3 FL (9.6-12.0); Monocytes # 1.3 10*3/uL (0.11-0.8); Monocytes % 12.3 % (1.7-12.7); Neutrophils # 7.5 10*3/uL (1.4-7.4); Neutrophils % 72.2 % (38.7-73.9); Platelet Count 221 T/CUMM (130-400); Red Blood Count 4.67 MC/CUMM (3.8-5.5); Red Cell Distribution Width 13.2 % (9.3-17.3); White Blood Count 10.3 T/CUMM (4-12)
[2017-04-13 05:26] LABS: Calcium 7.9 MG/DL (8.5-10.1); Magnesium 1.9 MG/DL (1.8-2.4); Osmolality,Calculated 295.7 MOS/KG (273-304); Potassium 3.5 MMOL/L (3.5-5.1)
[2017-04-13 05:31] LABS: Albumin 2.8 G/DL (3.4-5.0); Bilirubin,Total 0.7 MG/DL (0.2-1.0); Calcium 7.8 MG/DL (8.5-10.1); Osmolality,Calculated 295.7 MOS/KG (273-304); Potassium 3.6 MMOL/L (3.5-5.1); Total Protein 5.8 G/DL (6.4-8.3)
[2017-04-13] MEDS: INSULIN REGULAR DRIP 100 ML IV SCH (05:31)
[2017-04-13 05:33] LABS: Lactic Acid 2.8 MMOL/L (0.4-2.0)
[2017-04-13] MEDS ORDERED: SODIUM CHLOR 0.45% KCL 20 MEQ 20 MEQ/1,000 ML BAG IV SCH (07:30)
[2017-04-13 08:31] LABS: Allen Test Positive; Pt O2 Delivery Device Room Air
[2017-04-13 08:32] LABS: ABG Base Excess 6.1 MMOL/L (-2.5-2.5); ABG HCO3 29.9 MMOL/L (20-26); ABG PH 7.461 (7.35-7.45); ABG PO2 87.2 MM HG (80-95); ABG TCO2 26.4 MMOL/L (23-27)
[2017-04-13 08:41] LABS: Calcium 7.7 MG/DL (8.5-10.1); Osmolality,Calculated 295.3 MOS/KG (273-304); Potassium 2.9 MMOL/L (3.5-5.1)
[2017-04-13] MEDS: INSULIN GLARGINE 100 UNIT/ML SUBCUT SCH ×2 (09:20→21:44)
[2017-04-13] MEDS ORDERED: POTASSIUM CHLORIDE INJ 50 MEQ in SODIUM CHLORIDE 0.9% 500 ML IV SCH (10:00)
[2017-04-13] MEDS: INSULIN LISPRO 100 UNIT/ML SUBCUT SCH ×3 (11:50→21:44)
[2017-04-13] MEDS ORDERED: INFLUENZA VIRUS VACCINE 0.5 ML SYRINGE IM ONE (12:00)
[2017-04-14] MEDS: PIPERACILLIN/TAZOBACTAM 3,375 MG in SODIUM CHLORIDE 0.9% 100 ML IV SCH ×2 (02:04→08:40)
[2017-04-14 05:11] LABS: Calcium 7.8 MG/DL (8.5-10.1); Potassium 3.2 MMOL/L (3.5-5.1)
[2017-04-14] MEDS: INSULIN LISPRO 100 UNIT/ML SUBCUT SCH ×2 (07:57→12:44)
[2017-04-14] MEDS: INSULIN GLARGINE 100 UNIT/ML SUBCUT SCH (08:40)
[2017-04-14] MEDS ORDERED: POTASSIUM CHLORIDE INJ 40 MEQ in SODIUM CHLORIDE 0.9% 500 ML IV SCH (09:00)
[2017-04-14 12:15] VITALS: BP 112/78
== END 2017-04-14 15:50 | disposition home or self-care (01) | DRG 639 ==
LOC: N.ED 08:39 → N.EDINP 11:53 → N.ICU 15:40 → N.4E 04-14 09:21

== ENCOUNTER 2020-05-26 12:25 | Inpatient (IN) ==
[2020-05-26 12:58] LABS: Basophils # 0.2 10*3/uL (0.0-0.2); Basophils % 0.7 % (0.0-0.8); Hematocrit 47.1 VOL% (42.0-52.0); Hemoglobin 14.4 GM/DL (14.0-18.0); Immature Granulocytes % 1.6 %; Immature Granulocytes Absolute 0.38 #; Lymphocytes # 1.2 10*3/uL (1.4-4.0); Mean Corpuscular HGB Conc 30.6 GM/DL (32-36); Mean Corpuscular Volume 96.7 FL (87-102); Mean Platelet Volume 9.7 FL (9.6-12.0); Monocytes % 5.3 % (1.7-12.7); Neutrophils % 87.4 % (38.7-73.9); Platelet Count 449 T/CUMM (130-400); Red Blood Count 4.87 MC/CUMM (3.8-5.5); Red Cell Distribution Width 14.1 % (9.3-17.3); White Blood Count 23.7 T/CUMM (4-12)
[2020-05-26] MEDS ORDERED: INSULIN REGULAR 100 UNIT/ML IV STA (13:18)
[2020-05-26 13:19] LABS: Albumin 3.3 G/DL (3.4-5.0); Bilirubin,Total 0.4 MG/DL (0.2-1.0); Calcium 8.1 MG/DL (8.5-10.1); Osmolality,Calculated 308.5 MOS/KG (273-304); Potassium 4.7 MMOL/L (3.5-5.1); Total Protein 7.5 G/DL (6.4-8.3)
[2020-05-26] MEDS ORDERED: SODIUM CHLORIDE 0.9% 2,000 ML IV STA (13:19)
[2020-05-26 13:43] LABS: Bacteria,Urine Occasional /HPF (Few); Bilirubin,Urine Negative (Negative); Blood, Urine Small mg/dL (Negative); Glucose,Urine (UA) >=500 mg/dL (Negative); Ketones,Urine 80 mg/dL (Negative); Mucus,Urine Occasional /LPF (Occasional); Nitrite,Urine Negative (Negative); Protein,Urine 30 MG/DL; RBC,Urine 1 /HPF (0-4); Urine Appearance CLEAR (Clear); Urine Color Straw (Yellow); Urine Specific Gravity 1.021 (1.001-1.035); Urine Urobilinogen < 2.0 EU/DL (0.2-1.0); WBC,Urine 5 /HPF (0-6)
[2020-05-26 14:39] LABS: ABG HCO3 10.8 MMOL/L (20-26); ABG Oxygen Saturation 98.2 % (95-100); ABG PCO2 22.3 MM HG (35-48); ABG TCO2 7.6 MMOL/L (23-27); Pt O2 Delivery Device Room Air
[2020-05-26 14:41] LABS: ABG PH 7.183 (7.35-7.45)
[2020-05-26] MEDS ORDERED: ONDANSETRON 4 MG/2 ML VIAL IV PRN (15:05)
[2020-05-26] MEDS ORDERED: ALBUTEROL 2.5 MG/3 ML NEB RESP TX PRN (15:05)
[2020-05-26] MEDS ORDERED: MAGNESIUM SULF RIDER 4 GM in PREMIX 1 EACH IV PRN (15:09)
[2020-05-26] MEDS ORDERED: DEXTROSE 50% 25 GM/50 ML VIAL IV PRN ×2 (15:09)
[2020-05-26] MEDS ORDERED: MAGNESIUM SULF RIDER 2 GM in PREMIX 1 EACH IV PRN (15:09)
[2020-05-26] MEDS ORDERED: INSULIN REGULAR DRIP 100 ML IV SCH (15:30)
[2020-05-26] MEDS ORDERED: LACTATED RINGERS 1,000 ML IV SCH (15:30)
[2020-05-26 15:34] LABS: Eosinophils 1 % (0-10); Lymphocytes 8 % (20-55); Macrocytosis 1+; Myelocytes 1 %; Segmented Neutrophils 88 % (50-85); Total Cells Counted 100
[2020-05-26 15:35] LABS: Platelet Estimate Increased
[2020-05-26] MEDS: POTASSIUM CHLORIDE INJ 10 MEQ in DEXTROSE 5% LACTATED RINGERS 1,000 ML IV SCH (16:50)
[2020-05-26] MEDS: ENOXAPARIN 30 MG/0.3 ML SYRINGE SUBCUT SCH (17:15)
[2020-05-26] MEDS: FAMOTIDINE 20 MG/2 ML VIAL IV SCH (17:15)
[2020-05-26 17:44] LABS: Calcium 7.3 MG/DL (8.5-10.1); Osmolality,Calculated 290.8 MOS/KG (273-304); Potassium 4.2 MMOL/L (3.5-5.1)
[2020-05-26] MEDS: INSULIN LISPRO 100 UNIT/ML SUBCUT SCH (22:28)
[2020-05-26] MEDS: INSULIN NPH 100 UNIT/ML SUBCUT SCH (22:28)
[2020-05-26 23:34] LABS: Calcium 7.5 MG/DL (8.5-10.1); Osmolality,Calculated 288.1 MOS/KG (273-304); Potassium 4.4 MMOL/L (3.5-5.1)
[2020-05-27] MEDS: POTASSIUM CHLORIDE INJ 10 MEQ in DEXTROSE 5% LACTATED RINGERS 1,000 ML IV SCH ×5 (00:05→14:58)
[2020-05-27] MEDS: INSULIN LISPRO 100 UNIT/ML SUBCUT SCH ×5 (00:33→16:09)
[2020-05-27] MEDS: FAMOTIDINE 20 MG/2 ML VIAL IV SCH ×2 (03:56→14:59)
[2020-05-27 06:07] LABS: Basophils # 0.1 10*3/uL (0.0-0.2); Basophils % 0.6 % (0.0-0.8); Eosinophils % 0.4 % (0.00-10.9); Hematocrit 37.8 VOL% (42.0-52.0); Immature Granulocytes % 0.6 %; Immature Granulocytes Absolute 0.06 #; Lymphocytes # 1.9 10*3/uL (1.4-4.0); Mean Corpuscular HGB Conc 32.5 GM/DL (32-36); Mean Corpuscular Volume 91.3 FL (87-102); Mean Platelet Volume 9.5 FL (9.6-12.0); Monocytes % 6.7 % (1.7-12.7); Neutrophils % 73.7 % (38.7-73.9); Red Blood Count 4.14 MC/CUMM (3.8-5.5); Red Cell Distribution Width 14.7 % (9.3-17.3)
[2020-05-27 06:08] LABS: Hemoglobin 12.3 GM/DL (14.0-18.0); Platelet Count 336 T/CUMM (130-400); White Blood Count 10.4 T/CUMM (4-12)
[2020-05-27 06:24] LABS: Calcium 7.7 MG/DL (8.5-10.1); Osmolality,Calculated 286.4 MOS/KG (273-304); Potassium 3.8 MMOL/L (3.5-5.1)
[2020-05-27] MEDS: INSULIN NPH 100 UNIT/ML SUBCUT SCH (08:10)
[2020-05-27 10:27] LABS: Calcium 7.7 MG/DL (8.5-10.1); Osmolality,Calculated 284.4 MOS/KG (273-304); Potassium 3.9 MMOL/L (3.5-5.1)
[2020-05-27] MEDS: ENOXAPARIN 30 MG/0.3 ML SYRINGE SUBCUT SCH (14:59)
[2020-05-27 15:34] VITALS: BP 136/90
[2020-05-27 16:41] LABS: Calcium 7.7 MG/DL (8.5-10.1); Osmolality,Calculated 281.7 MOS/KG (273-304); Potassium 3.8 MMOL/L (3.5-5.1)
== END 2020-05-27 17:25 | disposition home or self-care (01) | DRG 420 ==
LOC: EDBD → EDUNIT# → N.ED 12:25 → SUATTDRO 15:05 → N.EDINP 15:05 → N.3E 19:52
PROVIDERS: ADMIT Internal Medicine; ATTEND Emergency Medicine